=== PATIENT | female | born 1995 | race Caucasian/White ===

== ENCOUNTER 2018-08-04 19:45 | Inpatient (IN) | payer MEDICAID, OTHER ==
[2018-08-04] MEDS ORDERED: PITOCin/NS 20 UNIT/1000ML DRIP 20,000 MILLIUNITS/1,000 ML BAG IV ONE (20:38)
[2018-08-04] MEDS ORDERED: LACTATED RINGERS 1,000 ML ONE (20:38)
[2018-08-04] MEDS ORDERED: NARCAN 0.4 MG/1 ML IV PRN (21:37)
[2018-08-04] MEDS ORDERED: BRETHINE IVP PRN (21:37)
[2018-08-04] MEDS ORDERED: ZOFRAN IV PRN (21:37)
[2018-08-04] MEDS ORDERED: SUBLIMAZE IV PRN (21:37)
[2018-08-04] MEDS ORDERED: BRETHINE SUB-Q PRN (21:37)
[2018-08-04] MEDS ORDERED: XYLOCAINE 2% INFILTRATI ONE (21:37)
[2018-08-04] MEDS ORDERED: MINERAL OIL PO PRN (21:37)
[2018-08-04] MEDS ORDERED: AMPICILLIN/NS 2 GM/100 ML 2 GM/100 ML BAG IV ONE ×2 (21:37→21:39)
[2018-08-04] MEDS ORDERED: SUBLIMAZE ONE (21:40)
[2018-08-04 21:49] LABS: Hematocrit 37.4 % (30.3-42.9); Mean Corpuscular HGB Conc 35 % (30-34); Mean Corpuscular Volume 94 fl (79-97); Red Blood Count 3.98 M/mm3 (3.65-5.03); Red Cell Distribution Width 12.5 % (13.2-15.2)
--- NOTE | 2018-08-04 21:54 | History and Physical Report ---
History of Present Illness Date of examination: 08/04/18 Date of admission: 08/04/18 21:12 Chief complaint: Intense labor pains History of present illness: 23 yo Fe , NORA 08/07/2018 (LMP) 39weeks 4 days, presents with "intense labor pains" Pt initiated care with [facility] at 5w4d. Pt received consistent care. records available for review. course uneventful. 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 denies: smoking, alcohol abuse, prescription drug abuse, IV drug use - Obstetrical History Expected Date of Delivery: 08/07/18 Actual Gestation: 39 Week(s) 4 Day(s) : 1 Para: 0 Hx # Term Pregnancies: 0 Number of Pregnancies: 0 Spontaneous Abortions: 0 Induced : 0 Number of Living Children: 0 Medications and Allergies Allergies Allergy/AdvReac Type Severity Reaction Status Date / Time No Known Allergies Allergy Unverified 08/04/18 21:35 Review of Systems Cardiovascular: no chest pain, no palpitations Respiratory: no shortness of breath Breasts: normal Gastrointestinal: no nausea, no vomiting, no diarrhea, no constipation Genitourinary: normal appearance, contractions, no leakage of fluid, no genital sores Integumentary: no rash, no sores, no lesions - Vital Signs Vital signs: Vital Signs Pulse BP 104 H 107/69 08/04/18 20:07 08/04/18 20:07 Temp Pulse Resp BP Pulse Ox 99.4 F 104 H 18 107/69 08/04/18 20:11 08/04/18 20:11 08/04/18 20:11 08/04/18 20:11 - Physical Exam Breasts: Positive: normal Cardiovascular: Regular rate, Normal S1, Normal S2, No murmurs Abdomen: Positive: normal appearance, soft, normal bowel sounds. Negative: distention Vulva: both: normal Vagina: Positive: normal moisture Uterus: Positive: enlarged (gravid) Anus/Rectum: Positive: normal perianal skin Extremities: Positive: normal Deep Tendon Reflex Grade: Normal +2 - Obstetrical FHR: category 1 Uterine Contraction Monitor Mode: External Cervical Dilatation: 4 Cervical Effacement Percentage: 90 station: -2 Uterine Contraction Pattern: Regular Uterine Tone Measurement Phase: Resting Uterine Contraction Intensity: Moderate Results All other labs normal. Assessment and Plan A: Term IUP at 39w4d Active labor Category 1 tracing GBS positive P: Admit to L&D; Routine labor orders IV pain med/epidural PRN GBS prophylaxis Anticipate
[2018-08-04] MEDS ORDERED: LACTATED RINGERS 1,000 ML IV SCH (22:00)
[2018-08-04] MEDS ORDERED: PITOCin/NS 20 UNIT/1000ML DRIP 20 UNITS/1,000 ML BAG IV SCH (22:00)
[2018-08-04 22:33] LABS: Platelet Count 210 K/mm3 (140-440)
[2018-08-04] MEDS ORDERED: STADOL ONE (23:32)
[2018-08-05] MEDS ORDERED: NARCAN 2 MG/2 ML IV PRN (00:01)
--- NOTE | 2018-08-05 00:04 | Anesthesia Consultation ---
Anesthesia Consult and Med Hx Date of service: 08/05/18 - Airway Anesthetic Teeth Evaluation: Good ROM Head & Neck: Adequate Mental/Hyoid Distance: Adequate Mallampati Class: Class I Intubation Access Assessment: Good - Pulmonary Exam CTA: Yes - Cardiac Exam Cardiac Exam: RRR - Pre-Operative Health Status ASA Pre-Surgery Classification: ASA2 Proposed Anesthetic Plan: General, Epidural - Pulmonary Hx Smoking: No Hx Asthma: No COPD: No Hx Pneumonia: No - Cardiovascular System Hx Hypertension: No Hx Heart Attack/AMI: No Hx Angina: No Hx Percutaneous Transluminal Coronary Angioplasty (PTCA): No Hx Cardia Arrhythmia: No Hx Pacemaker: No - Central Nervous System Hx Neuromuscular Disorder: No Hx Seizures: No CVA: No Hx Psychiatric Problems: No - Gastrointestinal Hx Ulcer: No Hx Gastroesophageal Reflux Disease: No - Endocrine Hx Renal Disease: No Hx End Stage Renal Disease: No Hx Cirrhosis: No Hx Liver Disease: No Hx Insulin Dependent Diabetes: No Hx Non-Insulin Dependent Diabetes: No Hx Hypothyroidism: No Hx Hyperthyroidism: No - Hematic Hx Anemia: No Hx Sickle Cell Disease: No - Other Systems Hx Alcohol Use: No Hx Substance Use: No Hx Cancer: No Hx Obesity: No
[2018-08-05] MEDS ORDERED: LIDOCAINE 1.5%/EPI 1:200,000 INFILTRATI ONE (00:35)
[2018-08-05] MEDS ORDERED: fentaNYL-BUPIV 2 MCG/ML-0.125% 200 MCG/100 ML BAG EPIDURAL SCH (01:00)
[2018-08-05] MEDS ORDERED: PITOCin/NS 30 UNIT/500ML 30 UNITS/500 ML BAG IV SCH (02:00)
[2018-08-05] MEDS: AMPICILLIN/NS 1 GM/50 ML 1 GM/50 ML BAG IV SCH ×2 (02:13→06:15)
[2018-08-05] MEDS ORDERED: STADOL IV PRN (06:42)
--- NOTE | 2018-08-05 08:58 | Procedure Note ---
OB Delivery Note - Delivery Date of Delivery: 08/05/18 (07:16) Surgeon: STEVEN ALEMAN (JESE) Estimated blood loss: 100cc - Vaginal Delivery presentation: vertex Delivery position: OA Intrapartum events: mult.variable deceleratio Delivery induction: none Delivery augmentation: rupture of membranes, pitocin Delivery monitor: external FHT, external uterine Route of delivery: (07:16) Delivery placenta: spontaneous (07:22) Delivery cord: 3 umbilical vessels Episiotomy: none Delivery laceration: other (Right periurethral) Delivery repair: vicryl (2-[address]) Anesthesia: epidural Delivery comments: viable male infant KEYLA position over intact perineum at 07: 16 placed [id number] on mothers abdomen. Strong lusty cry. Delayed cord clamping then cut by FOB with my guidance. Cord blood per protocol. Spontaneous schmidt delivery of intact placenta at 07:22. 3VC. Small right periurethral laceration repaired using 2-[address] under epidural anesthesia. Pt tolerated well. FF@U- 2. Bleeding small. EBL 100cc. Infant and mother left in stable condition in L&D. GBS positive. Tx'd x2. - A at 1 minute: 8 at 5 minutes: 9 Gender: Male (7lbs 6 oz, 3344 grams, 19")
[2018-08-05] MEDS ORDERED: TYLENOL PO PRN (09:00)
[2018-08-05] MEDS ORDERED: LANSINOH TP PRN (09:00)
[2018-08-05] MEDS ORDERED: ZOFRAN IV PRN (09:00)
[2018-08-05] MEDS ORDERED: TUCKS PAD TP PRN (09:00)
[2018-08-05] MEDS ORDERED: PHENERGAN PO PRN (09:00)
[2018-08-05] MEDS ORDERED: SODIUM CHLORIDE FLUSH SYRINGE 10 ML IV PRN (09:00)
[2018-08-05] MEDS ORDERED: NORCO 5/325 PO PRN (09:00)
[2018-08-05] MEDS ORDERED: BENADRYL PO PRN (09:00)
[2018-08-05] MEDS ORDERED: DULCOLAX PR PRN (10:00)
[2018-08-05] MEDS: IBUPROFEN PO SCH ×2 (13:10→23:08)
[2018-08-05 20:18] LABS: Hematocrit 30.7 % (30.3-42.9); Hemoglobin 10.5 gm/dl (10.1-14.3)
[2018-08-05] MEDS ORDERED: MILK OF MAGNESIA PO PRN (22:00)
[2018-08-06] MEDS: IBUPROFEN PO SCH ×3 (12:00→21:19)
--- NOTE | 2018-08-06 12:10 | Progress Note ---
Assessment and Plan A: day 1 S/P spontaneous vaginal delivery. Anemia secondary to and blood loss. P: Repeat H&H today. Supplement with oral iron. Patient to obtain assistance with ambulation. Subjective - Subjective Date of service: 08/06/18 Principal diagnosis: day 1 S/P Interval history: day 1 S/P spontaneous vaginal delivery. Doing well. Patient reports moderate amount of lochia. She reports occasional dizziness. Denies headache, chest pain, cough, shortness of breath, leg pain, abdominal pain. Voiding without difficulty and tolerating a regular diet. Patient reports: appetite normal, voiding normally, dizzy ambulation, pain well controlled, flatus, ambulating normally, no nauseated [place]: doing well Objective - Vital Signs Latest vital signs: Vital Signs Temp Pulse Resp BP BP Pulse Ox 08/06/18 09:28 98.2 F 69 20 89/60 08/06/18 00:08 18 08/05/18 23:55 97.7 F 73 14 91/57 98 08/05/18 23:08 18 08/05/18 20:52 98.1 F 86 14 116/61 98 08/05/18 16:14 98.4 F 76 18 107/61 98 Intake and Output 08/05/18 08/06/18 08/06/18 23:59 07:59 15:59 Intake Total 960 480 Balance 960 480 Intake: Oral 360 Intake, Free Water 600 480 Other: Total, Intake Amount 360 # Voids Void 1 1 - Exam Cardiovascular: Present: Regular rate, Normal S1, Normal S2 Lungs: Present: Clear to auscultation Abdomen: Present: normal appearance, soft. Absent: distention, tenderness, guarding, rigidity Uterus: Present: normal, firm, fundal height below umbilicus. Absent: bogginess, tenderness Extremities: Present: normal. Absent: tenderness, edema
[2018-08-06 13:51] LABS: Hematocrit 31.5 % (30.3-42.9); Hemoglobin 10.8 gm/dl (10.1-14.3)
[2018-08-06] MEDS: FEOSOL PO SCH ×2 (14:00→22:35)
[2018-08-07] MEDS: IBUPROFEN PO SCH (05:37)
[2018-08-07] MEDS ORDERED: M-M-R II VACCINE SUB-Q ONE (06:00)
[2018-08-07 10:28] VITALS: BP 109/72
[2018-08-07] MEDS: FEOSOL PO SCH (11:16)
--- NOTE | 2018-08-07 12:46 | Progress Note ---
Assessment and Plan A: day 2 S/P spontaneous vaginal delivery. Anemia due to and blood loss. P: Discharge patient home today. discharge instructions and warning signs discussed with patient. Advised patient to continue to take her vitamins and iron supplements at home (patient states she has plenty of both at home). Advised patient to avoid intercourse, lifting and heavy housework, driving, tub baths (patient may take showers). Advised patient to follow up at OB clinic in 6 weeks. Advised patient to call OB clinic and obtain appointment. Patient voiced understanding of all instructions. Subjective - Subjective Date of service: 08/07/18 Principal diagnosis: day 2 S/P Interval history: day 2 S/P spontaneous vaginal delivery. Doing well. Patient reports moderate amount of lochia. Voiding without difficulty; ambulating well; tolerating a regular diet without nausea or vomiting. Patient denies headache, chest pain, cough, shortness of breath, abdominal pain, leg pain, or heavy bleeding. Patient reports: appetite normal, voiding normally, pain well controlled, flatus, ambulating normally, no dizzy ambulation, no nauseated : doing well Objective - Vital Signs Latest vital signs: Vital Signs Temp Pulse Resp BP BP Pulse Ox 08/07/18 09:15 97.7 F 60 20 109/72 08/07/18 00:02 97.8 F 61 17 95/56 98 08/06/18 15:30 75 96/64 Intake and Output 08/06/18 08/07/18 08/07/18 22:59 07:59 15:59 Intake Total 320 Balance 320 Intake: Oral 320 Other: Total, Intake Amount 320 # Voids Void 2 # Bowel Movements - Exam Cardiovascular: Present: Regular rate, Normal S1, Normal S2 Lungs: Present: Clear to auscultation Abdomen: Present: normal appearance, soft. Absent: distention, tenderness, guarding, rigidity Uterus: Present: normal, firm, fundal height below umbilicus. Absent: bogginess, tenderness Extremities: Present: normal. Absent: tenderness, edema
--- NOTE | 2018-08-07 12:52 | Discharge Summary ---
Providers - Providers Date of Admission: 08/04/18 21:12 Date of discharge: 08/07/18 Attending physician: RAKESH ARORA MD None Primary care physician: RAKESH ARORA MD Hospitalization Reason for admission: active labor Delivery: Episiotomy: none Laceration: 1st degree Other procedures: none complications: none Discharge diagnosis: IUP at term delivered [place] baby: male Pertinent studies: Labs Hospital course: Stable hospital course. Condition at discharge: Good Disposition: DC-01 TO HOME OR SELFCARE - Discharge Diagnoses (1) Term delivered Status: Acute (2) Anemia due to blood loss Status: Acute Plan - Provider Discharge Summary Activity: routine, no sex for 6 weeks, no heavy lifting 4 weeks, no strenuous exercise Diet: routine Instructions: routine Additional instructions: Continue to take your vitamin and iron at home. Call your doctor immediately for: * Fever > 100.5 * Heavy vaginal bleeding ( >1 pad per hour) * Severe persistent headache * Shortness of breath * Reddened, hot, painful area to leg or breast - Follow up plan Follow up: RAKESH ARORA MD [Primary Care Provider] - 6 Weeks
== END 2018-08-07 16:35 | disposition home or self-care (01) | DRG 806 ==
LOC: TRG 19:45 → LD 21:12 → TRG 21:12 → OB 08-05 09:43
PROVIDERS: ADMIT Obstetrics & Gynecology; ATTEND Obstetrics & Gynecology
PROC: 10E0XZZ Delivery of Products of Conception, External Approach (ICD-10-PCS; principal; 2018-08-05)
PROC: 0UQMXZZ Repair Vulva, External Approach (ICD-10-PCS; 2018-08-05)
PROC: 3E0R3BZ Introduction of Anesthetic Agent into Spinal Canal, Percutaneous Approach (ICD-10-PCS; 2018-08-05)
PROC: 00HU33Z Insertion of Infusion Device into Spinal Canal, Percutaneous Approach (ICD-10-PCS; 2018-08-05)
PROC: 3E0234Z Introduction of Serum, Toxoid and Vaccine into Muscle, Percutaneous Approach (ICD-10-PCS; 2018-08-07)
DX: O76 Abnormality in fetal heart rate and rhythm complicating labor and delivery (principal); D62 Acute posthemorrhagic anemia; Z37.0 Single live birth; O99.02 Anemia complicating childbirth; O99.824 Streptococcus B carrier state complicating childbirth; O71.82 Other specified trauma to perineum and vulva; Z3A.39 39 weeks gestation of pregnancy; Z23 Encounter for immunization
CPT/HCPCS: 36415; 85014; 85018; 85027; 86592; 86850; 86900; 86901; 90707; G0378; J0290; J0595; J2590; J3010; J7120

== ENCOUNTER 2018-08-22 02:33 | Emergency (ER) | payer OTHER ==
[2018-08-22 02:53] VITALS: BP 118/72
[2018-08-22 04:10] LABS: Basophils # (Auto) 0.1 K/mm3 (0.0-0.1); Basophils % (Auto) 0.7 % (0.0-1.8); Eosinophils # (Auto) 0.2 K/mm3 (0.0-0.4); Eosinophils % (Auto) 1.9 % (0.0-4.3); Hematocrit 38.4 % (30.3-42.9); Lymphocytes # (Auto) 1.4 K/mm3 (1.2-5.4); Lymphocytes % (Auto) 10.9 % (13.4-35.0); Mean Corpuscular HGB Conc 34 % (30-34); Mean Corpuscular Volume 94 fl (79-97); Monocytes # (Auto) 0.6 K/mm3 (0.0-0.8); Monocytes % (Auto) 4.5 % (0.0-7.3); Platelet Count 408 K/mm3 (140-440); Red Blood Count 4.08 M/mm3 (3.65-5.03); Red Cell Distribution Width 12.2 % (13.2-15.2)
[2018-08-22 04:14] LABS: Amorphous Crystals,Urine Few; Bilirubin,Urine NEG (Negative); Blood,Urine NEG (Negative); Color,Urine Yellow (Yellow); Protein,Urine <15 mg/dL mg/dL (Negative); Urobilinogen,Urine < 2.0 mg/dL (<2.0)
[2018-08-22 04:37] LABS: Alanine Aminotransferase 24 units/L (7-56); Albumin 4.1 g/dL (3.9-5); BUN/Creatinine Ratio 19; Blood Urea Nitrogen 17 mg/dL (7-17); Calcium 9.7 mg/dL (8.4-10.2); Hemolysis Index 9
--- NOTE | 2018-08-22 06:39 | Ultrasound Report ---
PROCEDURE: US TRANSVAGINAL, US PELVIC COMPLETE TECHNIQUE: Transabdominal and transvaginal grayscale and color Doppler pelvic ultrasound HISTORY: abd pain 17days post COMPARISONS: None FINDINGS: Anteverted uterus measures 12.3 x 5.8 x 6.9 cm. Myometrium is within normal limits. Endometrium shows scant fluid near the fundus, with overall endometrial thickness of around 4 mm. No free fluid in the pelvis. Small functional cysts measuring up to 1 cm are noted in both ovaries. Ovarian echotexture a nd color Doppler evaluation are normal, and the ovaries measure 1.7 x 1.5 x 2.1 cm in the right and 2 x 1.9 x 1.6 cm on the left. IMPRESSION: No significant pelvic abnormality in recent patient. There is trace free fluid within the normal thickness endometrium. This document is electronically signed by Pelon Floyd MD., August 22 2018 06:37:46 AM ET
== END 2018-08-22 08:30 | disposition left against medical advice (07) ==
LOC: ED 02:33
DX: R10.9 Unspecified abdominal pain (principal); Z53.21 Procedure and treatment not carried out due to patient leaving prior to being seen by health care provider
CPT/HCPCS: 36415; 76830; 76856; 80053; 81001; 84702; 85025